=== PATIENT | male | born 1965 | race Two or more races ===

== ENCOUNTER 2016-09-13 10:49 | Inpatient (IN) | payer OTHER ==
[2016-09-13 11:28] VITALS: BMI 23.3
--- NOTE | 2016-09-13 14:01 | HP ---
COWS - Scale Resting Pulse: 2= [place] 101-120 Sweatin=Flushed/Facial Moisture Restless Observation: 3= Extraneous Movement Pupil Size: 2= Moderately Dilated Bone or Joint Aches: 2= Severe Diffuse Aches Runny Nose/ Eye Tearin= Runny Nose/Eyes GI Upset > 30mins: 3= Vomiting/Diarrhea Tremor Observation: 2= Slight Tremor Visible Yawning Observation: 2= >3x During Session Anxiety or Irritability: 2=Irritable/Anxious Goose Flesh Skin: 0=Smooth Skin COWS Score: 22 CIWA Score - CIWA Score Nausea/Vomitin Muscle Tremors: 3 Anxiety: 3 Agitation: 3 Paroxysmal Sweats: 2 Orientation: 0-Oriented Tacttile Disturbances: 2-Mild Itch/Numbness/Burn Auditory Disturbances: 2-Mild Harshness/Frighten Visual Disturbances: 2-Mild Sensitivity Headache: 2-Mild CIWA-Ar Total Score: 22 Admission ROS BHS - HPI Chief Complaint: i need help to stop using heroin,alcohol,cocaine, Allergies/Adverse Reactions: Allergies Allergy/AdvReac Type Severity Reaction Status Date / Time No Known Allergies Allergy Verified 09/13/16 13:52 History of Present Illness: this 51 years old male with heroin,alcohol and cocaine dependence with withdrawal symptom,last detox Exam Limitations: No Limitations - Ebola screening Have you traveled outside of the country in the last 21 days: No Have you had contact with anyone from an Ebola affected area: No Have you been sick,other than usual withdrawal symptoms: No - Review of Systems Constitutional: Chills, Diaphoresis, Loss of Appetite, Malaise, Night Sweats, Changes in sleep, Weakness EENT: reports: Tearing, Hearing Loss, Other (s/p cataract surgery) Respiratory: reports: No Symptoms reported Cardiac: reports: Palpitations GI: reports: Nausea, Vomiting, Abdominal cramping : reports: No Symptoms Reported Musculoskeletal: reports: Back Pain, Joint Pain, Muscle Pain, Joint Stiffness Integumentary: reports: Dryness Neuro: reports: Headache, Tremors Endocrine: reports: No Symptoms Reported Hematology: reports: No Symptoms Reported Psychiatric: reports: other (schizoaffective disorder) Patient History - Patient Medical History Hx Anemia: No Hx Asthma: No Hx Chronic Obstructive Pulmonary Disease (COPD): No Hx Cardiac Disorders: No Hx Hypertension: No (DENIES) Hx Hypercholesterolemia: No HX Cerebrovascular Accident: No Hx Seizures: No Hx Diabetes: Yes (NONCOMPLIANT WITH METFORMIN AND OTHER FORGOTTEN MEDS) Hx Gastrointestinal Disorders: No Hx Liver Disease: Yes (hepatitis c) Hx Genitourinary Disorders: No Hx Sexually Transmitted Disorders: No Hx Renal Disease (ESRD): No Hx Thyroid Disease: No Hx Human Immunodeficiency Virus (HIV): No Hx Hepatitis C: Yes (TREATED WITH HARVONI--UNDETECTED.) Hx Depression: Yes (NOT CURRENTLY ON MED) Hx Suicide Attempt: Yes (overdose) Hx Bipolar Disorder: No Hx Schizophrenia: Yes (NOT ON MEDS) Other Medical History: no suiicdal,no homicidal - Patient Surgical History Past Surgical History: No Hx Neurologic Surgery: No Hx Cataract Extraction: No Hx Cardiac Surgery: No Hx Lung Surgery: No Hx Breast Surgery: No Hx Breast Biopsy: No Hx Abdominal Surgery: No Hx Appendectomy: No Hx Cholecystectomy: No Hx Genitourinary Surgery: No Hx Section: No Hx Orthopedic Surgery: No Anesthesia Reaction: No - PPD History Previous Implant?: Yes Documented Results: Positive w/proof Results: CXR TBD PPD to be Administered?: No - Smoking Cessation Smoking history: Current every day smoker Have you smoked in the past 12 months: Yes Aproximately how many cigarettes per day: 20 Hx Chewing Tobacco Use: No Initiated information on smoking cessation: Yes 'Breaking Loose' booklet given: 09/13/16 - Substance & Tx. History Hx Alcohol Use: Yes Hx Substance Use: Yes Substance Use Type: Alcohol, Cocaine, Heroin - Substances Abused Heroin Route: Injection Frequency: Daily Amount used: 15 BAGS Age of first use: 50 Date of Last Use: 09/13/16 Alcohol Route: Oral Frequency: Daily Amount used: 2 PINTS VODKA Age of first use: 12 Date of Last Use: 09/12/16 Cocaine Route: Injection Frequency: Daily Amount used: $100 Age of first use: 15 Date of Last Use: 09/13/16 Family Disease History - Family Disease History Family Disease History: Diabetes: Mother Admission Physical Exam BHS - Vital Signs Vital Signs: Vital Signs - 24 hr 09/13/16 11:26 Temperature 98.5 F Pulse Rate 115 H Respiratory 20 Rate Blood Pressure 132/98 - Physical General Appearance: Yes: Moderate Distress, Tremorous, Irritable, Sweating, Anxious HEENTM: Yes: Within Normal Limits, Hearing grossly Normal, Normal ENT Inspection , Pharynx Normal Respiratory: Yes: Lungs Clear, Normal Breath Sounds, No Respiratory Distress Neck: Yes: Within Normal Limits, Supple, Trachea in good position Breast: Yes: Within Normal Limits Cardiology: Yes: Tachycardia Abdominal: Yes: Normal Bowel Sounds, Non Tender, Flat, Soft Genitourinary: Yes: Within Normal Limits Back: Yes: Normal Inspection, Muscle Spasm Musculoskeletal: Yes: Back pain, Joint Stiffness, Muscle Pain, Other (torn meniscus of right knee 05/03 ambulation with cane ,knee immulizer) Extremities: Yes: Tremors (knee immobilizer and cane walking) 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, Fully Oriented, Alert, Motor Strength 5/5 Integumentary: Yes: Dry Lymphatic: Yes: Within Normal Limits - Diagnostic (1) Schizoaffective disorder Current Visit: No Status: Active (2) Cocaine dependence, uncomplicated Current Visit: No Status: Acute (3) Opioid dependence with withdrawal Current Visit: No Status: Acute (4) Type 2 diabetes mellitus Current Visit: No Status: Acute Qualifiers: Diabetes mellitus complication status: with hyperglycemia Diabetes mellitus intermediate teacher insulin use: without nursing home use Qualified Code(s): E11.65 - Type 2 diabetes mellitus with hyperglycemia; Z79.4 - care home (current ) use of insulin Comment: NONCOMPLIANT WITH ORAL MEDS. (5) Hepatitis C Current Visit: No Status: Chronic Qualifiers: Viral hepatitis chronicity: unspecified Hepatic coma status: without hepatic coma Qualified Code(s): B19.20 - Unspecified viral hepatitis C without hepatic coma (6) Nicotine dependence Current Visit: No Status: Chronic (7) Alcohol dependence with uncomplicated withdrawal Current Visit: Yes Status: Acute (8) Right knee meniscal tear Current Visit: Yes Status: Acute (9) Use of cane as ambulatory aid Current Visit: Yes Status: Acute (10) Gouty arthritis Current Visit: Yes Status: Acute (11) Neuropathy Current Visit: Yes Status: Acute Cleared for Admission S - Detox or Rehab [facility] Level of Care: Medically Managed Detox Regimen/Protocol: Methadone/Librium S Breath Alcohol Content Breath Alcohol Content: 0 Urine Drug Screen - Results Drug Screen Negative: No Urine Drug Screen Results: THOMAS-Cocaine, OPI-Opiates, MTD-Methadone
[2016-09-13] MEDS ORDERED: MAG HYDROX/AL HYDROX/SIMETH 30 ML UNIT-DOSE CUP PO PRN (14:25)
[2016-09-13] MEDS ORDERED: NICOTINE POLACRILEX 2 MG GUM BUC PRN (14:25)
[2016-09-13] MEDS ORDERED: ACETAMINOPHEN 325 MG TABLET (FP) PO PRN (14:25)
[2016-09-13] MEDS ORDERED: IBUPROFEN 400 MG TABLET (FP) PO PRN (14:25)
[2016-09-13] MEDS ORDERED: hydrOXYzine PAMOATE 50 MG CAPSULE (FP) PO PRN (14:25)
[2016-09-13] MEDS ORDERED: guaiFENesin/D-METHORPHAN HB 10 ML UNIT-DOSE CUPS PO PRN (14:25)
[2016-09-13] MEDS ORDERED: diphenhydrAMINE HCL 50 MG CAPSULE PO PRN (14:25)
[2016-09-13] MEDS ORDERED: MENTHOL/PHENOL 1 EACH UD MM PRN (14:25)
[2016-09-13] MEDS ORDERED: MAGNESIUM HYDROX 2400MG/30ML ORAL SUSPENSION 30 ML CUP PO PRN (14:25)
[2016-09-13] MEDS ORDERED: MAGNESIUM CITRATE 300 ML BOTTLE PO PRN (14:25)
[2016-09-13] MEDS ORDERED: chlordiazePOXIDE HCL 25 MG CAPSULE PO PRN (14:25)
[2016-09-13] MEDS ORDERED: P-EPHED 60MG/TRIPROLIDI 2.5MG TABLET PO PRN (14:25)
[2016-09-13] MEDS ORDERED: LOPERAMIDE HCL 2 MG CAPSULE PO PRN (14:25)
[2016-09-13] MEDS ORDERED: chlordiazePOXIDE HCL 25 MG CAPSULE PO ONE (14:37)
[2016-09-13] MEDS ORDERED: METHADONE HCL 10 MG TABLET (FOR DETOX USE ONLY) PO ONE ×2 (14:38→23:00)
[2016-09-13] MEDS: NICOTINE 21 MG/24 HOURS TOPICAL PATCH TD SCH (15:38)
[2016-09-13] MEDS ORDERED: INSULIN (NOVOLOG) ASPART 100 UNITS/ML 10ML VIAL SQ SCH (16:30)
[2016-09-13] MEDS: chlordiazePOXIDE HCL 25 MG CAPSULE PO SCH ×2 (16:58→22:24)
[2016-09-13] MEDS ORDERED: INSULIN (NOVOLOG) ASPART 100 UNITS/ML 10ML VIAL ONE (21:17)
[2016-09-13] MEDS: INSULIN DETEMIR 100 UNITS/ML MDV SQ SCH (21:26)
[2016-09-13] MEDS: INSULIN SLIDING SCALE (NOVOLOG) 1 VIAL SQ SCH (21:27)
[2016-09-13] MEDS: THIAMINE HCL 100 MG TABLET (FP) PO SCH (22:24)
[2016-09-13] MEDS: GABAPENTIN 300 MG CAPSULE (FP) PO SCH (22:25)
[2016-09-13 23:14] LABS: URINE APPEARANCE CLEAR; URINE BILIRUBIN NEGATIVE (NEGATIVE); URINE BLOOD NEGATIVE (NEGATIVE); URINE COLOR LTYELLOW; URINE GLUCOSE (UA) 3+ (NEGATIVE); URINE KETONE NEGATIVE (NEGATIVE); URINE LEUK ESTERASE NEGATIVE (NEGATIVE); URINE NITRITE NEGATIVE (NEGATIVE); URINE PROTEIN NEGATIVE (NEGATIVE); URINE UROBILINOGEN NEGATIVE E.U./dl (0.2-1.0)
[2016-09-14] MEDS: IBUPROFEN 600 MG TABLET (FP) PO PRN (04:00)
[2016-09-14] MEDS: chlordiazePOXIDE HCL 25 MG CAPSULE PO SCH ×4 (05:09→22:26)
[2016-09-14] MEDS: GABAPENTIN 300 MG CAPSULE (FP) PO SCH ×3 (05:10→22:27)
[2016-09-14] MEDS ORDERED: INSULIN (NOVOLOG) ASPART 100 UNITS/ML 10ML VIAL ONE ×3 (07:54→17:01)
[2016-09-14] MEDS: INSULIN SLIDING SCALE (NOVOLOG) 1 VIAL SQ SCH ×3 (07:56→17:13)
[2016-09-14] MEDS ORDERED: METHADONE HCL 10 MG TABLET (FOR DETOX USE ONLY) PO SCH (10:00)
[2016-09-14] MEDS: PRENATAL VITAMINS W/ FOLIC ACID TABLET (FP) PO SCH (10:26)
[2016-09-14] MEDS: NICOTINE 21 MG/24 HOURS TOPICAL PATCH TD SCH (10:27)
--- NOTE | 2016-09-14 11:06 | CONSULT ---
[facility] Psychiatric Consult - Data Date of interview: 09/14/16 Admission source: [facility] Identifying data: Readmission to [facility] for this 51 y/o male seeking detox [facility],on ,for alcohol,heroin and cocaine dependence.Patient is single without children,homeless,unemployed and supported on Public Assistance. Substance Abuse History: - Smoking Cessation. Smoking history: Current every day smoker. Have you smoked in the past 12 months: Yes. Aproximately how many cigarettes per day: 20. Hx Chewing Tobacco Use: No. Initiated information on smoking cessation: Yes. 'Breaking Loose' booklet given: 09/13/16. - Substance & Tx. History. Hx Alcohol Use: Yes. Hx Substance Use: Yes. Substance Use Type : Alcohol, Cocaine, Heroin. - Substances Abused. Heroin. Route: Injection. Frequency: Daily. Amount used: 15 BAGS. Age of first use: 50. Date of Last Use: 09/13/16. Alcohol. Route: Oral. Frequency: Daily. Amount used: 2 PINTS VODKA. Age of first use: 12. Date of Last Use: 09/12/16. Cocaine. Route: Injection. Frequency: Daily. Amount used: $100. Age of first use: 15. Date of Last Use: 09/13/16. Confirmed by patient. Medical History: Diabetes melllitus,hepatitis C,gout,neuropathy,torn meniscus ( right knee) and cataracts (both eyes). Psychiatric History: Diagnosed with Schizoaffective Disorder.History of multiple psychiatric hospitalizations which includes an extensive stay at [facility] (1998).Mr Julio denies having psychiatric OPD care providers at this time." I am so busy in the streets using drugs ." Has been off psychotropic medications for past two months (self-report).Used to be prescribed seroquel and buspar (doses not recalled by patient).The patient admits to a remote history of suicide attempt via overdose with medications ( years ago). Physical/Sexual Abuse/Trauma History: No reported history of sexual abuse. Additional Comment: Urine Drug Screen Results: THOMAS-Cocaine, OPI-Opiates, MTD- Methadone.Noted. Mental Status Exam - Mental Status Exam Alert and Oriented to: Time, Place, Person Cognitive Function: Good Patient Appearance: Well Groomed (right leg in a brace) Mood: Anxious, Apprehensive Affect: Mood Congruent Patient Behavior: Fatigued, Appropriate, Cooperative Speech Pattern: Clear, Appropriate (bilingual) Voice Loudness: Normal Thought Process: Goal Oriented Thought Disorder: Not Present Hallucinations: Denies Suicidal Ideation: Denies Homicidal Ideation: Denies Insight/Judgement: Poor Sleep: Well (self-report) Appetite: Good Muscle strength/Tone: Normal Gait/Station: Other (walks with a cane) Psychiatric Findings - Problem List (Rebuck 1, 2,3) (1) Alcohol dependence with uncomplicated withdrawal Current Visit: Yes Status: Acute (2) Cocaine dependence, uncomplicated Current Visit: Yes Status: Acute (3) Opioid dependence with withdrawal Current Visit: Yes Status: Acute (4) Nicotine dependence Current Visit: Yes Status: Acute (5) Substance induced mood disorder Current Visit: Yes Status: Acute (6) Schizoaffective disorder Current Visit: Yes Status: Chronic (7) Gouty arthritis Current Visit: Yes Status: Chronic (8) Neuropathy Current Visit: Yes Status: Chronic (9) Right knee meniscal tear Current Visit: Yes Status: Chronic (10) Type 2 diabetes mellitus Current Visit: Yes Status: Chronic Qualifiers: Diabetes mellitus complication status: with hyperglycemia Diabetes mellitus assisted insulin use: without assisted use Qualified Code(s): E11.65 - Type 2 diabetes mellitus with hyperglycemia; 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 (11) Hepatitis C Current Visit: Yes Status: Chronic Qualifiers: Viral hepatitis chronicity: unspecified Hepatic coma status: without hepatic coma Qualified Code(s): B19.20 - Unspecified viral hepatitis C without hepatic coma (12) Use of cane as ambulatory aid Current Visit: Yes Status: Acute - Initial Treatment Plan Initial Treatment Plan: Psychoeducation.Detoxification.Medications : seroquel 200 mg po hs + buspar 10 mg po bid.Side effects/benefits discussed with patient.Made aware of potential for oversedation/falls,involuntary movements, metabolic syndrome that can be caused by use of seroquel and sedation,GI upset with buspar.He sates that bha has always well tolerated these medications.Patient agrees with this careplan.Observation.
[2016-09-14 11:07] LABS: ALBUMIN 4.3 g/dl (3.4-5.0); ANION GAP 12 (8-16); BILIRUBIN,TOTAL 0.9 mg/dL (0.2-1.0); CALCIUM 9.6 mg/dL (8.5-10.1); CO2 26 mmol/L (21-32); COCKROFT - GAULT 66.14; CREATININE 1.2 mg/dL (0.7-1.3); SGOT/AST 55 U/L (15-37); SGPT/ALT 84 U/L (12-78); TOT PROT 7.4 g/dl (6.4-8.2)
[2016-09-14 11:08] LABS: ALK PHOS 90 U/L (45-117)
[2016-09-14 11:13] LABS: MCH 30.1 pg (25.7-33.7); MEAN CELL VOLUME 86.1 fl (80-96); MEAN PLT VOLUME 8.7 fl (7.5-11.1); PLATELET COUNT 173 K/MM3 (134-434); RDW 13.2 % (11.9-15.9); WHITE BLOOD COUNT 13.7 K/mm3 (4.0-10.0)
--- NOTE | 2016-09-14 11:25 | EKG ---
Test Reason : Blood Pressure : / mmHG Vent. Rate : 100 BPM Atrial Rate : 100 BPM P-R Int : 156 ms QRS Dur : 084 ms QT Int : 332 ms P-R-T Axes : 064 082 060 degrees QTc Int : 428 ms NORMAL SINUS RHYTHM NORMAL ECG NO PREVIOUS ECGS AVAILABLE Confirmed by MICHELLE SHETTY MD ([id number]) on 09/14/2016 11:25:24 AM Referred By: Confirmed By:MICHELLE SHETTY MD
[2016-09-14 12:07] LABS: GLUCOSE,RANDOM 377 mg/dL (74-106)
--- NOTE | 2016-09-14 14:05 | PN ---
S CIWA - CIWA Score Nausea/Vomitin Muscle Tremors: 4-Moderate,w/Arms Extend Anxiety: 2 Agitation: 2 Paroxysmal Sweats: 3 Orientation: 0-Oriented Tacttile Disturbances: 0-None Auditory Disturbances: 0-None Visual Disturbances: 3-Moderate Sensitivity Headache: 0-None Present CIWA-Ar Total Score: 16 BHS COWS - Scale Resting Pulse: 2= [place] 101-120 Sweatin= Chills/Flushing Restless Observation: 1= Difficult to Sit Still Pupil Size: 0= Normal to Room Light Bone or Joint Aches: 2= Severe Diffuse Aches Runny Nose/ Eye Tearin= Nasal Congestion GI Upset > 30mins: 2= Nausea/Diarrhea Tremor Observation of Outstretched Hands: 2= Slight Tremor Visible Yawning Observation: 2= >3x During Session Anxiety or Irritability: 2=Irritable/Anxious Goose Flesh Skin: 0=Smooth Skin COWS Score: 15 S Progress Note (SOAP) Subjective: Tremors, Body aches, Nausea, Sweating. Objective: PT. A & O X 3, OBSERVED AMBULATING ON UNIT WITH ASSISTANCE OF A CANE. 09/14/16 14:02 Vital Signs Temperature 97.6 F 09/14/16 13:36 Pulse Rate 94 H 09/14/16 13:36 Respiratory Rate 20 09/14/16 13:36 Blood Pressure 108/70 09/14/16 13:36 O2 Sat by Pulse Oximetry (%) Laboratory Last Values WBC 13.7 K/mm3 (4.0-10.0) H D 09/14/16 06:05 RBC 4.74 M/mm3 (4.00-5.60) 09/14/16 06:05 Hgb 14.3 GM/dL (11.7-16.9) 09/14/16 06:05 Hct 40.8 % (35.4-49) 09/14/16 06:05 MCV 86.1 fl (80-96) 09/14/16 06:05 MCHC 35.0 g/dl (32.0-35.9) 09/14/16 06:05 RDW 13.2 % (11.9-15.9) 09/14/16 06:05 Plt Count 173 K/MM3 (134-434) 09/14/16 06:05 MPV 8.7 fl (7.5-11.1) 09/14/16 06:05 Sodium 134 mmol/L (136-145) L 09/14/16 06:05 Potassium 4.8 mmol/L (3.5-5.1) 09/14/16 06:05 Chloride 96 mmol/L (98-107) L 09/14/16 06:05 Carbon Dioxide 26 mmol/L (21-32) 09/14/16 06:05 Anion Gap 12 (8-16) 09/14/16 06:05 BUN 31 mg/dL (7-18) H D 09/14/16 06:05 Creatinine 1.2 mg/dL (0.7-1.3) D 09/14/16 06:05 Creat Clearance w eGFR > 60 (>60) 09/14/16 06:05 POC Glucometer 311 UNITS (()) 09/14/16 10:39 Random Glucose 377 mg/dL (74-106) H* 09/14/16 06:05 Calcium 9.6 mg/dL (8.5-10.1) 09/14/16 06:05 Total Bilirubin 0.9 mg/dL (0.2-1.0) D 09/14/16 06:05 AST 55 U/L (15-37) H D 09/14/16 06:05 ALT 84 U/L (12-78) H D 09/14/16 06:05 Alkaline Phosphatase 90 U/L (45-117) 09/14/16 06:05 Total Protein 7.4 g/dl (6.4-8.2) 09/14/16 06:05 Albumin 4.3 g/dl (3.4-5.0) D 09/14/16 06:05 Urine Color Ltyellow 09/13/16 14:00 Urine Appearance Clear 09/13/16 14:00 Urine pH 5.0 (5.0-8.0) 09/13/16 14:00 Ur Specific [place] 1.025 (1.001-1.035) 09/13/16 14:00 Urine Protein Negative (NEGATIVE) 09/13/16 14:00 Urine Glucose (UA) 3+ (NEGATIVE) H 09/13/16 14:00 Urine Ketones Negative (NEGATIVE) 09/13/16 14:00 Urine Blood Negative (NEGATIVE) 09/13/16 14:00 Urine Nitrite Negative (NEGATIVE) 09/13/16 14:00 Urine Bilirubin Negative (NEGATIVE) 09/13/16 14:00 Urine Urobilinogen Negative E.U./dl (0.2-1.0) 09/13/16 14:00 Ur Leukocyte Esterase Negative (NEGATIVE) 09/13/16 14:00 RPR Titer Nonreactive (NONREACTIVE) 09/14/16 06:05 LABS NOTED. Assessment: 09/14/16 14:04 WITHDRAWAL SYMPTOMS. Plan: CONTINUE DETOX. ADVISED PATIENT TO FOLLOW-UP WITH PROCTOLOGIST / REHAB MEDICAL PROVIDER AFTER DISCHARGE FROM DETOX FOR GENERAL MEDICAL ASSESSMENT AND FOR ABNORMAL ADMISSION LAB VALUES.
[2016-09-14] MEDS: BENZOCAINE 28 GM HEMORRHOIDAL OINTMENT PR PRN (14:34)
[2016-09-14] MEDS: INSULIN DETEMIR 100 UNITS/ML MDV SQ SCH (22:26)
[2016-09-14] MEDS: AMMONIUM LACTATE 12% LOTION 225 GM BOTTLE TP SCH (22:26)
[2016-09-14] MEDS: THIAMINE HCL 100 MG TABLET (FP) PO SCH (22:26)
[2016-09-14] MEDS: busPIRone HCL 10 MG TABLET (FP) PO SCH (22:26)
[2016-09-14] MEDS: QUEtiapine FUMARATE 200 MG TABLET PO SCH (22:26)
[2016-09-15] MEDS ORDERED: INSULIN (NOVOLOG) ASPART 100 UNITS/ML 10ML VIAL ONE ×3 (06:38→18:07)
[2016-09-15] MEDS: chlordiazePOXIDE HCL 25 MG CAPSULE PO SCH ×2 (07:13→10:31)
[2016-09-15] MEDS: GABAPENTIN 300 MG CAPSULE (FP) PO SCH ×3 (07:13→23:04)
[2016-09-15] MEDS: INSULIN SLIDING SCALE (NOVOLOG) 1 VIAL SQ SCH ×4 (07:13→18:07)
[2016-09-15] MEDS: busPIRone HCL 10 MG TABLET (FP) PO SCH ×2 (10:31→23:05)
[2016-09-15] MEDS: PRENATAL VITAMINS W/ FOLIC ACID TABLET (FP) PO SCH (10:31)
[2016-09-15] MEDS: METHADONE HCL 5 MG TABLET (FOR DETOX USE ONLY) PO SCH (10:32)
[2016-09-15] MEDS: AMMONIUM LACTATE 12% LOTION 225 GM BOTTLE TP SCH ×2 (10:33→23:05)
[2016-09-15] MEDS: NICOTINE 21 MG/24 HOURS TOPICAL PATCH TD SCH (10:36)
--- NOTE | 2016-09-15 13:34 | PN ---
S CIWA - CIWA Score Nausea/Vomitin Muscle Tremors: 3 Anxiety: 4-Mod. Anxious/Guarded Agitation: 3 Paroxysmal Sweats: No Perspiration Orientation: 0-Oriented Tacttile Disturbances: 1-Very Mild Itch/Numbness Auditory Disturbances: 0-None Visual Disturbances: 0-None Headache: 2-Mild CIWA-Ar Total Score: 16 BHS COWS - Scale Resting Pulse: 1= [place] 81-100 Sweatin= Chills/Flushing Restless Observation: 3= Extraneous Movement Pupil Size: 0= Normal to Room Light Bone or Joint Aches: 2= Severe Diffuse Aches Runny Nose/ Eye Tearin= Runny Nose/Eyes GI Upset > 30mins: 0= None Tremor Observation of Outstretched Hands: 2= Slight Tremor Visible Yawning Observation: 0= None Anxiety or Irritability: 2=Irritable/Anxious Goose Flesh Skin: 0=Smooth Skin COWS Score: 13 BHS Progress Note (SOAP) Subjective: Nausea, tremor, sweating, anxious Objective: 09/15/16 13:30 Last Vital Signs Temp Pulse Resp BP Pulse Ox 96 F L 88 19 118/75 09/15/16 13:18 09/15/16 13:18 09/15/16 13:18 09/15/16 13:18 Laboratory Tests 09/13/16 09/13/16 09/14/16 14:00 14:19 06:05 WBC 13.7 H D RBC 4.74 Hgb 14.3 Hct 40.8 MCV 86.1 MCHC 35.0 RDW 13.2 Plt Count 173 MPV 8.7 Sodium Potassium Chloride Carbon Dioxide Anion Gap BUN Creatinine Creat Clearance w eGFR POC Glucometer 348 Random Glucose Calcium Total Bilirubin AST ALT Alkaline Phosphatase Total Protein Albumin Urine Color Ltyellow Urine Appearance Clear Urine pH 5.0 Ur Specific [place] 1.025 Urine Protein Negative Urine Glucose (UA) 3+ H Urine Ketones Negative Urine Blood Negative Urine Nitrite Negative Urine Bilirubin Negative Urine Urobilinogen Negative Ur Leukocyte Esterase Negative RPR Titer 09/14/16 09/14/16 09/14/16 06:05 06:05 06:05 WBC RBC Hgb Hct MCV MCHC RDW Plt Count MPV Sodium 134 L Potassium 4.8 Chloride 96 L Carbon Dioxide 26 Anion Gap 12 BUN 31 H D Creatinine 1.2 D Creat Clearance w eGFR > 60 POC Glucometer 261 Random Glucose 377 H* Calcium 9.6 Total Bilirubin 0.9 D AST 55 H D ALT 84 H D Alkaline Phosphatase 90 Total Protein 7.4 Albumin 4.3 D Urine Color Urine Appearance Urine pH Ur Specific [place] Urine Protein Urine Glucose (UA) Urine Ketones Urine Blood Urine Nitrite Urine Bilirubin Urine Urobilinogen Ur Leukocyte Esterase RPR Titer Nonreactive 09/14/16 09/14/16 09/14/16 10:39 16:16 21:28 WBC RBC Hgb Hct MCV MCHC RDW Plt Count MPV Sodium Potassium Chloride Carbon Dioxide Anion Gap BUN Creatinine Creat Clearance w eGFR POC Glucometer 311 399 370 Random Glucose Calcium Total Bilirubin AST ALT Alkaline Phosphatase Total Protein Albumin Urine Color Urine Appearance Urine pH Ur Specific [place] Urine Protein Urine Glucose (UA) Urine Ketones Urine Blood Urine Nitrite Urine Bilirubin Urine Urobilinogen Ur Leukocyte Esterase RPR Titer 09/15/16 10:35 WBC RBC Hgb Hct MCV MCHC RDW Plt Count MPV Sodium Potassium Chloride Carbon Dioxide Anion Gap BUN Creatinine Creat Clearance w eGFR POC Glucometer 338 Random Glucose Calcium Total Bilirubin AST ALT Alkaline Phosphatase Total Protein Albumin Urine Color Urine Appearance Urine pH Ur Specific [place] Urine Protein Urine Glucose (UA) Urine Ketones Urine Blood Urine Nitrite Urine Bilirubin Urine Urobilinogen Ur Leukocyte Esterase RPR Titer Labs noted: POC glucose 338, serum creatinine 1.2, BUN 31 Assessment: 09/15/16 13:32 Withdrawal symptoms Hyperglycemia secondary to DMT2 Noted with pre renal azotemia Plan: Continue detox DMT2 with hyperglycemia: continue regimen Pre renal azotemia: encouraged to drink lots of water (ordered for water pitcher )
[2016-09-15] MEDS: chlordiazePOXIDE 5 MG CAPSULE PO SCH ×2 (17:00→23:04)
[2016-09-15] MEDS: THIAMINE HCL 100 MG TABLET (FP) PO SCH (22:00)
[2016-09-15] MEDS: QUEtiapine FUMARATE 200 MG TABLET PO SCH (22:00)
[2016-09-15] MEDS: INSULIN DETEMIR 100 UNITS/ML MDV SQ SCH (22:30)
[2016-09-16] MEDS: IBUPROFEN 600 MG TABLET (FP) PO PRN ×2 (00:53→17:23)
[2016-09-16] MEDS: chlordiazePOXIDE 5 MG CAPSULE PO SCH ×2 (07:08→10:23)
[2016-09-16] MEDS: GABAPENTIN 300 MG CAPSULE (FP) PO SCH ×3 (07:09→22:06)
[2016-09-16] MEDS ORDERED: INSULIN (NOVOLOG) ASPART 100 UNITS/ML 10ML VIAL ONE ×3 (07:13→17:01)
[2016-09-16] MEDS: INSULIN SLIDING SCALE (NOVOLOG) 1 VIAL SQ SCH ×3 (07:17→16:30)
[2016-09-16] MEDS: busPIRone HCL 10 MG TABLET (FP) PO SCH ×2 (10:22→22:06)
[2016-09-16] MEDS: PRENATAL VITAMINS W/ FOLIC ACID TABLET (FP) PO SCH (10:22)
[2016-09-16] MEDS: METHADONE HCL 5 MG TABLET (FOR DETOX USE ONLY) PO SCH (10:22)
[2016-09-16] MEDS: AMMONIUM LACTATE 12% LOTION 225 GM BOTTLE TP SCH ×2 (10:23→22:07)
[2016-09-16] MEDS: NICOTINE 21 MG/24 HOURS TOPICAL PATCH TD SCH (10:23)
--- NOTE | 2016-09-16 11:22 | PN ---
BHS Progress Note (SOAP) Subjective: Sweating,interrupted sleep,restless Objective: 09/16/16 11:20 Vital Signs - 8 hr 09/16/16 09/16/16 09/16/16 03:38 06:41 07:56 Temperature 95.8 F L Pulse Rate 73 65 Respiratory 18 18 Rate Blood Pressure 122/79 176/92 09/16/16 09:13 Temperature Pulse Rate 94 H Respiratory 18 Rate Blood Pressure 121/81 Laboratory Last Values WBC 13.7 K/mm3 (4.0-10.0) H D 09/14/16 06:05 RBC 4.74 M/mm3 (4.00-5.60) 09/14/16 06:05 Hgb 14.3 GM/dL (11.7-16.9) 09/14/16 06:05 Hct 40.8 % (35.4-49) 09/14/16 06:05 MCV 86.1 fl (80-96) 09/14/16 06:05 MCHC 35.0 g/dl (32.0-35.9) 09/14/16 06:05 RDW 13.2 % (11.9-15.9) 09/14/16 06:05 Plt Count 173 K/MM3 (134-434) 09/14/16 06:05 MPV 8.7 fl (7.5-11.1) 09/14/16 06:05 Sodium 134 mmol/L (136-145) L 09/14/16 06:05 Potassium 4.8 mmol/L (3.5-5.1) 09/14/16 06:05 Chloride 96 mmol/L (98-107) L 09/14/16 06:05 Carbon Dioxide 26 mmol/L (21-32) 09/14/16 06:05 Anion Gap 12 (8-16) 09/14/16 06:05 BUN 31 mg/dL (7-18) H D 09/14/16 06:05 Creatinine 1.2 mg/dL (0.7-1.3) D 09/14/16 06:05 Creat Clearance w eGFR > 60 (>60) 09/14/16 06:05 POC Glucometer 344 UNITS (()) 09/16/16 06:32 Random Glucose 377 mg/dL (74-106) H* 09/14/16 06:05 Calcium 9.6 mg/dL (8.5-10.1) 09/14/16 06:05 Total Bilirubin 0.9 mg/dL (0.2-1.0) D 09/14/16 06:05 AST 55 U/L (15-37) H D 09/14/16 06:05 ALT 84 U/L (12-78) H D 09/14/16 06:05 Alkaline Phosphatase 90 U/L (45-117) 09/14/16 06:05 Total Protein 7.4 g/dl (6.4-8.2) 09/14/16 06:05 Albumin 4.3 g/dl (3.4-5.0) D 09/14/16 06:05 Urine Color Ltyellow 09/13/16 14:00 Urine Appearance Clear 09/13/16 14:00 Urine pH 5.0 (5.0-8.0) 09/13/16 14:00 Ur Specific [place] 1.025 (1.001-1.035) 09/13/16 14:00 Urine Protein Negative (NEGATIVE) 09/13/16 14:00 Urine Glucose (UA) 3+ (NEGATIVE) H 09/13/16 14:00 Urine Ketones Negative (NEGATIVE) 09/13/16 14:00 Urine Blood Negative (NEGATIVE) 09/13/16 14:00 Urine Nitrite Negative (NEGATIVE) 09/13/16 14:00 Urine Bilirubin Negative (NEGATIVE) 09/13/16 14:00 Urine Urobilinogen Negative E.U./dl (0.2-1.0) 09/13/16 14:00 Ur Leukocyte Esterase Negative (NEGATIVE) 09/13/16 14:00 RPR Titer Nonreactive (NONREACTIVE) 09/14/16 06:05 labs noted Assessment: 09/16/16 11:21 Withdrawal sx Plan: Continue detox
[2016-09-16] MEDS: chlordiazePOXIDE HCL 10 MG CAPSULE PO SCH ×2 (17:54→22:06)
[2016-09-16] MEDS: THIAMINE HCL 100 MG TABLET (FP) PO SCH (22:06)
[2016-09-16] MEDS: QUEtiapine FUMARATE 200 MG TABLET PO SCH (22:06)
[2016-09-16] MEDS: BENZOCAINE 28 GM HEMORRHOIDAL OINTMENT PR PRN (22:08)
[2016-09-16] MEDS: INSULIN DETEMIR 100 UNITS/ML MDV SQ SCH (22:10)
[2016-09-17] MEDS: chlordiazePOXIDE HCL 10 MG CAPSULE PO SCH ×2 (05:22→10:06)
[2016-09-17] MEDS: GABAPENTIN 300 MG CAPSULE (FP) PO SCH (05:23)
[2016-09-17] MEDS: IBUPROFEN 600 MG TABLET (FP) PO PRN (05:23)
[2016-09-17] MEDS ORDERED: INSULIN (NOVOLOG) ASPART 100 UNITS/ML 10ML VIAL ONE (07:28)
[2016-09-17] MEDS: INSULIN SLIDING SCALE (NOVOLOG) 1 VIAL SQ SCH ×2 (07:38→11:56)
[2016-09-17 09:40] VITALS: BP 122/84; PULSE 72; TEMP 95.7
[2016-09-17] MEDS ORDERED: METHADONE HCL 10 MG TABLET (FOR DETOX USE ONLY) PO SCH (10:00)
[2016-09-17] MEDS: busPIRone HCL 10 MG TABLET (FP) PO SCH (10:04)
[2016-09-17] MEDS: AMMONIUM LACTATE 12% LOTION 225 GM BOTTLE TP SCH (10:05)
[2016-09-17] MEDS: PRENATAL VITAMINS W/ FOLIC ACID TABLET (FP) PO SCH (10:06)
[2016-09-17] MEDS: NICOTINE 21 MG/24 HOURS TOPICAL PATCH TD SCH (10:06)
--- NOTE | 2016-09-17 10:18 | PN ---
BHS Progress Note (SOAP) Subjective: Sweating,interrupted sleep,restless. Objective: 09/17/16 10:17 Vital Signs - 8 hr 09/17/16 09/17/16 09/17/16 03:25 06:11 09:38 Temperature 96.3 F L 95.7 F L Pulse Rate 95 H 72 Respiratory 18 18 18 Rate Blood Pressure 128/79 122/84 Laboratory Last Values WBC 13.7 K/mm3 (4.0-10.0) H D 09/14/16 06:05 RBC 4.74 M/mm3 (4.00-5.60) 09/14/16 06:05 Hgb 14.3 GM/dL (11.7-16.9) 09/14/16 06:05 Hct 40.8 % (35.4-49) 09/14/16 06:05 MCV 86.1 fl (80-96) 09/14/16 06:05 MCHC 35.0 g/dl (32.0-35.9) 09/14/16 06:05 RDW 13.2 % (11.9-15.9) 09/14/16 06:05 Plt Count 173 K/MM3 (134-434) 09/14/16 06:05 MPV 8.7 fl (7.5-11.1) 09/14/16 06:05 Sodium 134 mmol/L (136-145) L 09/14/16 06:05 Potassium 4.8 mmol/L (3.5-5.1) 09/14/16 06:05 Chloride 96 mmol/L (98-107) L 09/14/16 06:05 Carbon Dioxide 26 mmol/L (21-32) 09/14/16 06:05 Anion Gap 12 (8-16) 09/14/16 06:05 BUN 31 mg/dL (7-18) H D 09/14/16 06:05 Creatinine 1.2 mg/dL (0.7-1.3) D 09/14/16 06:05 Creat Clearance w eGFR > 60 (>60) 09/14/16 06:05 POC Glucometer 351 UNITS (()) 09/17/16 05:21 Random Glucose 377 mg/dL (74-106) H* 09/14/16 06:05 Calcium 9.6 mg/dL (8.5-10.1) 09/14/16 06:05 Total Bilirubin 0.9 mg/dL (0.2-1.0) D 09/14/16 06:05 AST 55 U/L (15-37) H D 09/14/16 06:05 ALT 84 U/L (12-78) H D 09/14/16 06:05 Alkaline Phosphatase 90 U/L (45-117) 09/14/16 06:05 Total Protein 7.4 g/dl (6.4-8.2) 09/14/16 06:05 Albumin 4.3 g/dl (3.4-5.0) D 09/14/16 06:05 Urine Color Ltyellow 09/13/16 14:00 Urine Appearance Clear 09/13/16 14:00 Urine pH 5.0 (5.0-8.0) 09/13/16 14:00 Ur Specific [place] 1.025 (1.001-1.035) 09/13/16 14:00 Urine Protein Negative (NEGATIVE) 09/13/16 14:00 Urine Glucose (UA) 3+ (NEGATIVE) H 09/13/16 14:00 Urine Ketones Negative (NEGATIVE) 09/13/16 14:00 Urine Blood Negative (NEGATIVE) 09/13/16 14:00 Urine Nitrite Negative (NEGATIVE) 09/13/16 14:00 Urine Bilirubin Negative (NEGATIVE) 09/13/16 14:00 Urine Urobilinogen Negative E.U./dl (0.2-1.0) 09/13/16 14:00 Ur Leukocyte Esterase Negative (NEGATIVE) 09/13/16 14:00 RPR Titer Nonreactive (NONREACTIVE) 09/14/16 06:05 labs noted Assessment: 09/17/16 10:17 Withdrawal sx. Plan: Continue detox
[2016-09-17] MEDS ORDERED: INSULIN (NOVOLOG) ASPART 100 UNITS/ML 10ML VIAL SQ ONE (11:55)
[2016-09-18] MEDS ORDERED: METHADONE HCL 5 MG TABLET (FOR DETOX USE ONLY) PO SCH (06:00)
--- NOTE | 2016-10-20 16:43 | DS ---
[facility] Detox Discharge Summary Admission Date: 09/13/16 Discharge Date: 09/17/16 - History Present History: Alcohol Dependence, Cocaine Dependence, Opioid Dependence Pertinent Past History: hep c type II DM - Physical Exam Results Vital Signs: Vital Signs Temperature 95.7 F L 09/17/16 09:38 Pulse Rate 72 09/17/16 09:38 Respiratory Rate 18 09/17/16 09:38 Blood Pressure 122/84 09/17/16 09:38 O2 Sat by Pulse Oximetry (%) Pertinent Admission Physical Exam Findings: Withdrawal sx, Laboratory Last Values WBC 13.7 K/mm3 (4.0-10.0) H D 09/14/16 06:05 RBC 4.74 M/mm3 (4.00-5.60) 09/14/16 06:05 Hgb 14.3 GM/dL (11.7-16.9) 09/14/16 06:05 Hct 40.8 % (35.4-49) 09/14/16 06:05 MCV 86.1 fl (80-96) 09/14/16 06:05 MCHC 35.0 g/dl (32.0-35.9) 09/14/16 06:05 RDW 13.2 % (11.9-15.9) 09/14/16 06:05 Plt Count 173 K/MM3 (134-434) 09/14/16 06:05 MPV 8.7 fl (7.5-11.1) 09/14/16 06:05 Sodium 134 mmol/L (136-145) L 09/14/16 06:05 Potassium 4.8 mmol/L (3.5-5.1) 09/14/16 06:05 Chloride 96 mmol/L (98-107) L 09/14/16 06:05 Carbon Dioxide 26 mmol/L (21-32) 09/14/16 06:05 Anion Gap 12 (8-16) 09/14/16 06:05 BUN 31 mg/dL (7-18) H D 09/14/16 06:05 Creatinine 1.2 mg/dL (0.7-1.3) D 09/14/16 06:05 Creat Clearance w eGFR > 60 (>60) 09/14/16 06:05 POC Glucometer 529 UNITS (()) 09/17/16 11:10 Random Glucose 377 mg/dL (74-106) H* 09/14/16 06:05 Calcium 9.6 mg/dL (8.5-10.1) 09/14/16 06:05 Total Bilirubin 0.9 mg/dL (0.2-1.0) D 09/14/16 06:05 AST 55 U/L (15-37) H D 09/14/16 06:05 ALT 84 U/L (12-78) H D 09/14/16 06:05 Alkaline Phosphatase 90 U/L (45-117) 09/14/16 06:05 Total Protein 7.4 g/dl (6.4-8.2) 09/14/16 06:05 Albumin 4.3 g/dl (3.4-5.0) D 09/14/16 06:05 Urine Color Ltyellow 09/13/16 14:00 Urine Appearance Clear 09/13/16 14:00 Urine pH 5.0 (5.0-8.0) 09/13/16 14:00 Ur Specific [place] 1.025 (1.001-1.035) 09/13/16 14:00 Urine Protein Negative (NEGATIVE) 09/13/16 14:00 Urine Glucose (UA) 3+ (NEGATIVE) H 09/13/16 14:00 Urine Ketones Negative (NEGATIVE) 09/13/16 14:00 Urine Blood Negative (NEGATIVE) 09/13/16 14:00 Urine Nitrite Negative (NEGATIVE) 09/13/16 14:00 Urine Bilirubin Negative (NEGATIVE) 09/13/16 14:00 Urine Urobilinogen Negative E.U./dl (0.2-1.0) 09/13/16 14:00 Ur Leukocyte Esterase Negative (NEGATIVE) 09/13/16 14:00 RPR Titer Nonreactive (NONREACTIVE) 09/14/16 06:05 labs noted - Treatment Hospital Course: Detox Protocol Followed, Detoxed Safely, Responded well, Discharged Condition Good, Rehab Referral Accepted Patient has Accepted a Rehab Referral to: [facility] - Medication Discharge Medications: Ambulatory Orders Quetiapine Fumarate [Seroquel] 200 mg PO BID 10/16/11 Metformin HCl [Glucophage -] 1,000 mg PO BIDAC #0 tablet 11/18/11 Buspirone HCl [Buspar -] 10 mg PO BID 09/13/16 Folic Acid - 1 mg PO DAILY 09/13/16 Folic Acid/Multivit-Min/Lutein [Therapeutic-M Tablet] 1 each PO DAILY 09/13/16 Gabapentin [Neurontin] 600 mg PO TID 09/13/16 Hydroxyzine Pamoate [Vistaril -] 50 mg PO Q6H PRN 09/13/16 Ibuprofen [Motrin -] 600 mg PO Q6H PRN 09/13/16 Insulin Lispro [Humalog] 6 unit SQ AC 09/13/16 Buspirone HCl [Buspar -] 10 mg PO BID #60 tablet 09/14/16 Quetiapine Fumarate [Seroquel -] 200 mg PO HS #30 tab 09/14/16 Buspirone HCl [Buspar -] 10 mg PO BID #60 tablet 09/24/16 Insulin Glargine,Hum.rec.anlog [Lantus Solostar PEN -] 30 units SQ HS #1 units 09/24/16 Metformin HCl [Glucophage -] 1,000 mg PO BIDAC #60 tablet 09/24/16 Quetiapine Fumarate [Seroquel -] 200 mg PO BID #60 tablet 09/24/16 - Diagnosis (1) Alcohol dependence with uncomplicated withdrawal Status: Acute (2) Cocaine dependence, uncomplicated Status: Acute (3) Nicotine dependence Status: Acute (4) Opioid dependence with withdrawal Status: Acute (5) Substance induced mood disorder Status: Acute (6) Hepatitis C Status: Chronic Qualifiers: Viral hepatitis chronicity: unspecified Hepatic coma status: without hepatic coma Qualified Code(s): B19.20 - Unspecified viral hepatitis C without hepatic coma (7) Schizoaffective disorder Status: Chronic (8) Type 2 diabetes mellitus Status: Chronic Qualifiers: Diabetes mellitus complication status: with hyperglycemia 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
== END 2016-09-17 12:16 | disposition other institution (70) | DRG 773 ==
LOC: YASAS 10:49 → Y3N 14:04
PROVIDERS: ADMIT Internal Medicine; ATTEND Internal Medicine
PROC: HZ2ZZZZ Detoxification Services for Substance Abuse Treatment (ICD-10-PCS; principal; 2016-09-17)
DX: F11.23 Opioid dependence with withdrawal (principal); F10.230 Alcohol dependence with withdrawal, uncomplicated; F14.20 Cocaine dependence, uncomplicated; F17.210 Nicotine dependence, cigarettes, uncomplicated; F19.24 Other psychoactive substance dependence with psychoactive substance-induced mood disorder; F25.9 Schizoaffective disorder, unspecified; M10.9 Gout, unspecified; G62.9 Polyneuropathy, unspecified; B19.20 Unspecified viral hepatitis C without hepatic coma; E11.65 Type 2 diabetes mellitus with hyperglycemia; Z59.0 Homelessness
CPT/HCPCS: 36415; 80053; 81003; 85027; 86593; 93005; 93010

== ENCOUNTER 2016-09-17 12:32 | Inpatient (IN) | payer OTHER ==
[2016-09-17] MEDS ORDERED: P-EPHED 60MG/TRIPROLIDI 2.5MG TABLET PO PRN (13:21)
[2016-09-17] MEDS ORDERED: NICOTINE POLACRILEX 4 MG GUM BUC PRN (13:21)
[2016-09-17] MEDS ORDERED: MAGNESIUM CITRATE 300 ML BOTTLE PO PRN (13:21)
[2016-09-17] MEDS ORDERED: MENTHOL/PHENOL 1 EACH UD MM PRN (13:21)
[2016-09-17] MEDS ORDERED: MAGNESIUM HYDROX 2400MG/30ML ORAL SUSPENSION 30 ML CUP PO PRN (13:21)
[2016-09-17] MEDS ORDERED: guaiFENesin/D-METHORPHAN HB 10 ML UNIT-DOSE CUPS PO PRN (13:21)
[2016-09-17] MEDS ORDERED: LOPERAMIDE HCL 2 MG CAPSULE PO PRN (13:21)
[2016-09-17] MEDS ORDERED: MAG HYDROX/AL HYDROX/SIMETH 30 ML UNIT-DOSE CUP PO PRN (13:21)
[2016-09-17] MEDS ORDERED: AMMONIUM LACTATE 12% LOTION 225 GM BOTTLE TP PRN (13:24)
[2016-09-17] MEDS: GABAPENTIN 300 MG CAPSULE (FP) PO SCH ×2 (14:23→21:15)
--- NOTE | 2016-09-17 14:49 | HP ---
Psychiatrist Admission - Data Date of interview: 09/17/16 Admission source: 3N Identifying data: This is the second 5N inpatient rehabilitation admission for this 51 year old single Medical History: Diabetes melllitus,hepatitis C,gout,neuropathy,torn meniscus ( right knee) and cataracts (both eyes). Smokes cigarettes 1 PPD. Psychiatric History: Patient reports his first psychiatric hospitalization was while in High School, reports he was throwing chairs in school and admitted to the psychiatric unit for 2 weeks. Patient reports several subsequent psychiatric (more than 10), he is known to [facility], [facility], admitted to [facility] for 6 months. Diagnosed as Schizoaffective disorder. Reports 2 suicidal attempts in the past, as overdosed with pills " long time ago",past treatment with Thorazine, Depakote.Reports hearing "whispering" voices following him, laughing at him, reports at times they tell him to hurt himself "not to hurt others". Reports paranoid thoughts on and off. Reports has not been taking medications for the past 2 months, "was medicating self with drugs", seen by and Seroquel 200 mg po bid and Buspar 10 mg po bid restarted. Patient reports that he experiencing auditory hallucinations and paranoid thoughts only when he does not take his medications. Physical/Sexual Abuse/Trauma History: Denies history of sexual, physical and verbal abuse. Allergies/Adverse Reactions: Allergies Allergy/AdvReac Type Severity Reaction Status Date / Time No Known Allergies Allergy Verified 09/13/16 13:52 Date of last physical exam: 09/13/16 Concur with the findings of this exam: Yes - Substance Abuse/Tx History Hx Alcohol Use: Yes Hx Substance Use: Yes Substance Use Type: Alcohol (vodka "sometimes a beer"), Cocaine (injecting $100 ), Heroin (injectin 10 bags a day) Hx Substance Use Treatment: Yes - Admission Criteria Previous failed treatment: Yes Poor recovery environment: Yes Comorbidities: Yes Lacks judgement: Yes Mental Status Exam - Mental Status Exam Alert and Oriented to: Time, Place, Person Cognitive Function: Grossly Intact Patient Appearance: Well Groomed Mood: Anxious Affect: Appropriate, Mood Congruent Patient Behavior: Appropriate, Cooperative Speech Pattern: Clear, Appropriate Voice Loudness: Normal Thought Process: Intact, Goal Oriented Thought Disorder: Paranoid Ideation (on and off, worce when on cocaine) Hallucinations: Denies, Auditory (on and off voices whispering when not on medications) Suicidal Ideation: Denies Homicidal Ideation: None Insight/Judgement: Good Sleep: Well Appetite: Good Muscle strength/Tone: Normal Gait/Station: Other (walking with cane) Psychiatric Findings - Problem List ([place] 1, 2,3) (1) Alcohol dependence Current Visit: No Status: Active (2) Hepatitis C Current Visit: No Status: Chronic Qualifiers: Viral hepatitis chronicity: unspecified Hepatic coma status: without hepatic coma Qualified Code(s): B19.20 - Unspecified viral hepatitis C without hepatic coma (3) Neuropathy Current Visit: No Status: Chronic (4) Schizoaffective disorder Current Visit: No Status: Chronic (5) Type 2 diabetes mellitus Current Visit: No Status: Chronic Qualifiers: Diabetes mellitus complication status: with hyperglycemia 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 (6) Opioid dependence Current Visit: Yes Status: Acute (7) Cocaine dependence Current Visit: Yes Status: Acute - Initial Treatment Plan Initial Treatment Plan: Will continue his current medications, monitor rpogress as needed.
--- NOTE | 2016-09-17 16:30 | HP ---
AMELIA SCHMID Rehab Assess/Revision - Admission History Admitted to Rehab from: [facility] Date of Admission to Rehab: 09/17/16 - Vital signs Vital Signs: Vital Signs Period Temp Pulse Resp BP Sys/Curran Pulse Ox Last 24 Hr 98.4 F 96 16 125/75 - Findings Detox History & Physical reviewed: Yes Concur with findings: Yes Comments/Additional Findings: transferred from detox to rehab admission as per protocol
[2016-09-17] MEDS: metFORMIN HCL 500 MG TABLET (FP) PO SCH (16:54)
[2016-09-17] MEDS ORDERED: INSULIN (NOVOLOG) ASPART 100 UNITS/ML 10ML VIAL ONE (16:55)
[2016-09-17] MEDS: INSULIN SLIDING SCALE (NOVOLOG) 1 VIAL SQ SCH (16:55)
[2016-09-17] MEDS: IBUPROFEN 400 MG TABLET (FP) PO PRN (18:57)
[2016-09-17] MEDS: INSULIN DETEMIR 100 UNITS/ML MDV SQ SCH (21:14)
[2016-09-17] MEDS: THIAMINE HCL 100 MG TABLET (FP) PO SCH (21:15)
[2016-09-17] MEDS: busPIRone HCL 10 MG TABLET (FP) PO SCH (21:15)
[2016-09-17] MEDS: QUEtiapine FUMARATE 200 MG TABLET PO SCH (21:15)
[2016-09-17] MEDS: ACETAMINOPHEN 325 MG TABLET (FP) PO PRN (21:16)
[2016-09-18] MEDS: metFORMIN HCL 500 MG TABLET (FP) PO SCH ×2 (06:23→16:55)
[2016-09-18] MEDS: INSULIN SLIDING SCALE (NOVOLOG) 1 VIAL SQ SCH ×4 (06:23→16:55)
[2016-09-18] MEDS: GABAPENTIN 300 MG CAPSULE (FP) PO SCH ×3 (06:23→21:09)
[2016-09-18] MEDS ORDERED: INSULIN (NOVOLOG) ASPART 100 UNITS/ML 10ML VIAL ONE ×3 (06:39→16:55)
[2016-09-18] MEDS: QUEtiapine FUMARATE 200 MG TABLET PO SCH ×2 (09:46→21:09)
[2016-09-18] MEDS: PRENATAL VITAMINS W/ FOLIC ACID TABLET (FP) PO SCH (09:46)
[2016-09-18] MEDS: busPIRone HCL 10 MG TABLET (FP) PO SCH ×2 (09:46→21:09)
[2016-09-18] MEDS: NICOTINE 21 MG/24 HOURS TOPICAL PATCH TD SCH (09:47)
[2016-09-18] MEDS ORDERED: INSULIN (NOVOLOG) ASPART 100 UNITS/ML 10ML VIAL SQ ONE (12:21)
[2016-09-18] MEDS: IBUPROFEN 400 MG TABLET (FP) PO PRN (16:57)
[2016-09-18] MEDS: THIAMINE HCL 100 MG TABLET (FP) PO SCH (21:09)
[2016-09-18] MEDS: INSULIN DETEMIR 100 UNITS/ML MDV SQ SCH (21:09)
[2016-09-18] MEDS: ACETAMINOPHEN 325 MG TABLET (FP) PO PRN (21:10)
[2016-09-18] MEDS: diphenhydrAMINE HCL 50 MG CAPSULE PO PRN (21:11)
[2016-09-19] MEDS: metFORMIN HCL 500 MG TABLET (FP) PO SCH ×2 (06:34→16:52)
[2016-09-19] MEDS: GABAPENTIN 300 MG CAPSULE (FP) PO SCH ×3 (06:34→21:08)
[2016-09-19] MEDS ORDERED: INSULIN (NOVOLOG) ASPART 100 UNITS/ML 10ML VIAL ONE ×2 (06:34→11:51)
[2016-09-19] MEDS: INSULIN SLIDING SCALE (NOVOLOG) 1 VIAL SQ SCH ×3 (06:34→16:51)
[2016-09-19] MEDS: QUEtiapine FUMARATE 200 MG TABLET PO SCH ×2 (10:03→21:08)
[2016-09-19] MEDS: busPIRone HCL 10 MG TABLET (FP) PO SCH ×2 (10:03→21:08)
[2016-09-19] MEDS: NICOTINE 21 MG/24 HOURS TOPICAL PATCH TD SCH (10:03)
[2016-09-19] MEDS: PRENATAL VITAMINS W/ FOLIC ACID TABLET (FP) PO SCH (10:03)
[2016-09-19] MEDS: THIAMINE HCL 100 MG TABLET (FP) PO SCH (21:08)
[2016-09-19] MEDS: INSULIN DETEMIR 100 UNITS/ML MDV SQ SCH (21:10)
[2016-09-19] MEDS: IBUPROFEN 400 MG TABLET (FP) PO PRN (21:11)
[2016-09-20] MEDS: GABAPENTIN 300 MG CAPSULE (FP) PO SCH ×3 (06:32→21:12)
[2016-09-20] MEDS: INSULIN SLIDING SCALE (NOVOLOG) 1 VIAL SQ SCH ×3 (06:32→17:06)
[2016-09-20] MEDS: metFORMIN HCL 500 MG TABLET (FP) PO SCH ×2 (06:32→17:05)
[2016-09-20] MEDS ORDERED: INSULIN (NOVOLOG) ASPART 100 UNITS/ML 10ML VIAL ONE ×3 (06:43→16:28)
[2016-09-20] MEDS: QUEtiapine FUMARATE 200 MG TABLET PO SCH ×2 (09:33→21:12)
[2016-09-20] MEDS: busPIRone HCL 10 MG TABLET (FP) PO SCH ×2 (09:33→21:12)
[2016-09-20] MEDS: NICOTINE 21 MG/24 HOURS TOPICAL PATCH TD SCH (09:33)
[2016-09-20] MEDS: PRENATAL VITAMINS W/ FOLIC ACID TABLET (FP) PO SCH (09:33)
[2016-09-20] MEDS: INSULIN DETEMIR 100 UNITS/ML MDV SQ SCH (21:12)
[2016-09-20] MEDS: THIAMINE HCL 100 MG TABLET (FP) PO SCH (21:12)
[2016-09-20] MEDS: IBUPROFEN 400 MG TABLET (FP) PO PRN (21:15)
[2016-09-21] MEDS: metFORMIN HCL 500 MG TABLET (FP) PO SCH ×2 (06:19→16:52)
[2016-09-21] MEDS: GABAPENTIN 300 MG CAPSULE (FP) PO SCH ×3 (06:19→21:09)
[2016-09-21] MEDS: IBUPROFEN 400 MG TABLET (FP) PO PRN ×2 (06:21→21:11)
[2016-09-21] MEDS ORDERED: hydrOXYzine PAMOATE 50 MG CAPSULE (FP) PO PRN (06:36)
[2016-09-21] MEDS: INSULIN SLIDING SCALE (NOVOLOG) 1 VIAL SQ SCH ×3 (06:59→16:52)
[2016-09-21] MEDS: busPIRone HCL 10 MG TABLET (FP) PO SCH ×2 (09:51→21:09)
[2016-09-21] MEDS: NICOTINE 21 MG/24 HOURS TOPICAL PATCH TD SCH (09:51)
[2016-09-21] MEDS: QUEtiapine FUMARATE 200 MG TABLET PO SCH ×2 (09:51→21:10)
[2016-09-21] MEDS: PRENATAL VITAMINS W/ FOLIC ACID TABLET (FP) PO SCH (09:51)
[2016-09-21] MEDS ORDERED: INSULIN (NOVOLOG) ASPART 100 UNITS/ML 10ML VIAL ONE ×2 (11:48→17:06)
[2016-09-21] MEDS: diphenhydrAMINE HCL 50 MG CAPSULE PO PRN (21:10)
[2016-09-21] MEDS: THIAMINE HCL 100 MG TABLET (FP) PO SCH (21:10)
[2016-09-21] MEDS: INSULIN DETEMIR 100 UNITS/ML MDV SQ SCH (21:13)
[2016-09-22] MEDS: IBUPROFEN 400 MG TABLET (FP) PO PRN ×2 (03:50→21:10)
[2016-09-22] MEDS: INSULIN SLIDING SCALE (NOVOLOG) 1 VIAL SQ SCH ×3 (06:11→16:56)
[2016-09-22] MEDS: metFORMIN HCL 500 MG TABLET (FP) PO SCH ×2 (06:12→16:54)
[2016-09-22] MEDS: GABAPENTIN 300 MG CAPSULE (FP) PO SCH ×4 (06:12→21:08)
[2016-09-22] MEDS ORDERED: INSULIN (NOVOLOG) ASPART 100 UNITS/ML 10ML VIAL ONE ×3 (06:40→22:09)
[2016-09-22] MEDS: busPIRone HCL 10 MG TABLET (FP) PO SCH ×2 (09:49→21:09)
[2016-09-22] MEDS: PRENATAL VITAMINS W/ FOLIC ACID TABLET (FP) PO SCH (09:49)
[2016-09-22] MEDS: QUEtiapine FUMARATE 200 MG TABLET PO SCH ×2 (09:49→21:08)
[2016-09-22] MEDS: NICOTINE 21 MG/24 HOURS TOPICAL PATCH TD SCH (09:49)
[2016-09-22] MEDS: THIAMINE HCL 100 MG TABLET (FP) PO SCH (21:08)
[2016-09-22] MEDS: INSULIN DETEMIR 100 UNITS/ML MDV SQ SCH (21:12)
[2016-09-23] MEDS: IBUPROFEN 400 MG TABLET (FP) PO PRN ×2 (06:24→21:10)
[2016-09-23] MEDS: GABAPENTIN 300 MG CAPSULE (FP) PO SCH ×3 (06:24→21:09)
[2016-09-23] MEDS: metFORMIN HCL 500 MG TABLET (FP) PO SCH ×2 (06:24→16:46)
[2016-09-23] MEDS: INSULIN SLIDING SCALE (NOVOLOG) 1 VIAL SQ SCH ×3 (06:25→16:45)
[2016-09-23] MEDS: QUEtiapine FUMARATE 200 MG TABLET PO SCH ×2 (09:58→21:09)
[2016-09-23] MEDS: PRENATAL VITAMINS W/ FOLIC ACID TABLET (FP) PO SCH (09:58)
[2016-09-23] MEDS: busPIRone HCL 10 MG TABLET (FP) PO SCH ×2 (09:58→21:09)
[2016-09-23] MEDS: NICOTINE 21 MG/24 HOURS TOPICAL PATCH TD SCH (09:59)
[2016-09-23] MEDS ORDERED: INSULIN (NOVOLOG) ASPART 100 UNITS/ML 10ML VIAL ONE ×2 (12:00→16:46)
[2016-09-23] MEDS: THIAMINE HCL 100 MG TABLET (FP) PO SCH (21:09)
[2016-09-23] MEDS: INSULIN DETEMIR 100 UNITS/ML MDV SQ SCH (21:09)
[2016-09-24] MEDS: metFORMIN HCL 500 MG TABLET (FP) PO SCH (06:27)
[2016-09-24] MEDS: GABAPENTIN 300 MG CAPSULE (FP) PO SCH (06:27)
[2016-09-24] MEDS: INSULIN SLIDING SCALE (NOVOLOG) 1 VIAL SQ SCH (06:28)
[2016-09-24 06:31] VITALS: BP 147/86; PULSE 94; TEMP 98.2
[2016-09-24] MEDS ORDERED: INSULIN (NOVOLOG) ASPART 100 UNITS/ML 10ML VIAL ONE (06:37)
[2016-09-24] MEDS: busPIRone HCL 10 MG TABLET (FP) PO SCH (10:32)
[2016-09-24] MEDS: PRENATAL VITAMINS W/ FOLIC ACID TABLET (FP) PO SCH (10:32)
[2016-09-24] MEDS: NICOTINE 21 MG/24 HOURS TOPICAL PATCH TD SCH (10:32)
[2016-09-24] MEDS: QUEtiapine FUMARATE 200 MG TABLET PO SCH (10:32)
--- NOTE | 2016-09-24 11:55 | PN ---
S Progress Note Note: As was decided by team the patient was administratively discharged due to a threatening verbal altercation towards another patient. Scripts provided for 30 days, stable upon discharge.
== END 2016-09-24 09:30 | disposition home or self-care (01) | DRG 772 ==
LOC: YASAS 12:32 → Y5N 12:34
PROVIDERS: ADMIT Psychiatry & Neurology Psychiatry; ATTEND Psychiatry & Neurology Psychiatry
PROC: HZ42ZZZ Group Counseling for Substance Abuse Treatment, Cognitive-Behavioral (ICD-10-PCS; principal; 2016-09-24)
DX: F11.20 Opioid dependence, uncomplicated (principal); F14.20 Cocaine dependence, uncomplicated; F12.20 Cannabis dependence, uncomplicated; F25.9 Schizoaffective disorder, unspecified; G62.9 Polyneuropathy, unspecified; B19.20 Unspecified viral hepatitis C without hepatic coma; E11.65 Type 2 diabetes mellitus with hyperglycemia; Z79.4 Long term (current) use of insulin; Z59.0 Homelessness